=== PATIENT | female | born 1940 | race Caucasian/White ===

== ENCOUNTER 2017-09-10 08:14 | Day surgery (SDC) | payer OTHER ==
[~2017-09-10 08:14] MED LIST: CARTIA XT120 MG PO; FAMOTIDINE10 MG PO; LIPITOR20 MG PO; MICARDIS20 MG PO; PLAVIX75 MG PO; SYNTHROID100 MCG PO; TENORMIN25 MG PO; ZETIA10 MG PO
[2017-09-10] MEDS ORDERED: PERCOCET 5-3251 EACH PO (12:24)
[2017-09-10] MEDS ORDERED: DUI500 PO (12:24)
== END 2017-09-10 15:45 | disposition home or self-care (01) ==
LOC: CIR.AMB 08:14
DX: S52.571A Other intraarticular fracture of lower end of right radius, initial encounter for closed fracture (principal)
CPT/HCPCS: 25609; 20902; 25101; C1776